=== PATIENT | male | born 2005 | race Caucasian/White ===

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

== ENCOUNTER 2024-09-03 00:18 | Emergency (ER) | payer OTHER, SELFPAY ==
[2024-09-03] MEDS ORDERED: Ketorolac Tromethamine 30 MG (1 mL) VIAL ONE (01:06)
== END 2024-09-03 01:30 | disposition home or self-care (01) ==
LOC: ERS 00:18
DX: S42.443A Displaced fracture (avulsion) of medial epicondyle of unspecified humerus, initial encounter for closed fracture (principal); Z55.6 Problems related to health literacy; W19.XXXA Unspecified fall, initial encounter; Y93.89 Activity, other specified
CPT/HCPCS: 96372; 99283; J1885

== ENCOUNTER 2024-09-10 14:35 | Outpatient (CLI) | payer OTHER | END 2024-09-10 14:36 | disposition home or self-care (01) | LOC: BICMRI 14:35 | PROVIDERS: ATTEND Orthopaedic Surgery | DX: S42.442A Displaced fracture (avulsion) of medial epicondyle of left humerus, initial encounter for closed fracture (principal); S53.442A Ulnar collateral ligament sprain of left elbow, initial encounter; R60.0 Localized edema; M25.422 Effusion, left elbow ==

== ENCOUNTER 2024-09-11 09:29 | Day surgery (SDC) | payer OTHER ==
[2024-09-11] MEDS ORDERED: fentaNYL 50 mcg/mL 1 mL Vial ONE ×2 (10:08→11:14)
[2024-09-11] MEDS ORDERED: Ropivacaine 0.5% HCl/PF (150 MG/30 ML VIAL) ONE (10:09)
[2024-09-11] MEDS ORDERED: Midazolam HCl 2 mg/2 ml Vial ONE (10:09)
[2024-09-11] MEDS ORDERED: PROPOFOL 20 ML ONE (11:14)
[2024-09-11] MEDS ORDERED: Lidocaine 1% PF 5 ML VIAL ONE (11:16)
[2024-09-11] MEDS ORDERED: Rocuronium Bromide 10 MG/ML (10ML VIAL) ONE (11:16)
[2024-09-11 11:24] LABS: #Basophils 0.05 10x3/uL (0.0-0.2); %Basophils 0.7 % (0.0-1.0); %Eosinophils 2.7 % (0.0-10.0); %Lymphocytes 21.3 % (21.0-51.0); %Monocytes 8.2 % (0.0-10.0); %Neutrophils 66.7 % (42.0-75.0); Hematocrit 45.1 % (42.0-52.0); Hemoglobin 16.1 g/dL (14.0-18.0); Mean Corpuscular HGB CONC 35.7 g/dL (32.0-36.0); Mean Corpuscular Hemoglobin 32.8 pg (27.0-31.0); Mean Corpuscular Volume 91.9 fL (78.0-98.0); Mean Platelet Volume 9.9 fL (7.4-10.4); Platelet Count 329 10x3/uL (130-400); RBC Distribution Width 11.6 % (11.5-14.5); Red Blood Cell (RBC) Count 4.91 mill/uL (4.70-6.10)
[2024-09-11] MEDS ORDERED: CEFAZOLIN 2 GM VIAL ONE (12:07)
[2024-09-11] MEDS ORDERED: Ondansetron PF 4 MG/2 ML Vial ONE (12:34)
[2024-09-11] MEDS ORDERED: Dexamethasone 20 MG/5 ML VIAL ONE (12:34)
[2024-09-11] MEDS ORDERED: PHENYLEPHRINE-NS 100 MCG/ML 10 ML SYRINGE ONE (13:16)
[2024-09-11] MEDS ORDERED: SUGAMMADEX SODIUM 200 MG/2 ML VIAL ONE (14:08)
== END 2024-09-11 17:15 | disposition home or self-care (01) ==
LOC: SDC 09:29
PROVIDERS: ATTEND Orthopaedic Surgery
PROC: 0PSG04Z Reposition Left Humeral Shaft with Internal Fixation Device, Open Approach (ICD-10-PCS; principal; 2024-09-11)
DX: S42.442A Displaced fracture (avulsion) of medial epicondyle of left humerus, initial encounter for closed fracture (principal); X58.XXXA Exposure to other specified factors, initial encounter
CPT/HCPCS: 85025; 93005; 93010; C1713; J1100; J2250; J2405; J2704; J2795; J3010